=== PATIENT | male | born 1985 | race Two or more races ===

== ENCOUNTER → 2016-09-12 | Emergency (ER) | payer SELFPAY ==
[~2016-09-12] VITALS: Ht 172.7 cm; Wt 81.6 kg
[~2016-09-12] MED LIST: Erythromycin Opth Ointment 3.5gm BOTH EYES SCH; Erythromycin Opth Ointment 3.5gm ONE
[2016-09-12 23:00] VITALS: BP 122/71
[2016-09-13 01:05] VITALS: BP 126/72
[2016-09-13 02:24] LABS: MEAN CORPUSCULAR HGB CONC 33.3 G/DL (32.0-36.0); MEAN CORPUSCULAR VOLUME 87 FL (80-99); MEAN PLATELET VOLUME 14.1 FL (6.5-10.1); PLATELET COUNT 70 K/UL (150-450); RED BLOOD COUNT 5.58 M/UL (4.70-6.10); RED CELL DISTRIBUTION WIDTH 11.3 % (11.6-14.8); WHITE BLOOD COUNT 6.9 K/UL (4.8-10.8)
[2016-09-13 02:40] LABS: ACETAMINOPHEN < 10 ug/mL (10-30); ALANINE AMINOTRANSFERASE 82 U/L (3-41); ALBUMIN/GLOBULIN RATIO 1.4 (1.0-2.7); ALCOHOL < 10 mg/dL; ANION GAP 19 (5-15); ASPARTATE AMINO TRANSFERASE 54 U/L (5-40); CALCIUM 9.4 mg/dL (8.6-10.2); CARBON DIOXIDE 26 mEQ/L (20-30); CHLORIDE 93 mEQ/L (98-107); CREATININE 0.9 mg/dL (0.7-1.2); GLOMERULAR FILTRATION RATE > 60 mL/min (>60); HEMOLYSIS 2; POTASSIUM 3.9 mEQ/L (3.4-4.9); SODIUM 138 mEQ/L (135-145)
[2016-09-13 03:20] VITALS: BP 118/71
--- NOTE | 2016-09-13 04:41 | Emergency Room Report ---
History of Present Illness General Chief Complaint: General Complaint Source: EMS Present Illness HPI 31YOM with known "psych problems" BIBEMS after roomates stated he had "locked himself in his room for days, " ?not taking meds. Patient not providing additional HPI, not speaking currently. Never been here before. No other info available. No family or friends bedside. Allergies: Coded Allergies: No Known Allergies (Unverified , 09/12/16) Patient History Past Medical History: unable to obtain, psych hx Past Surgical History: unable to obtain Pertinent Family History: unable to obtain Nursing Documentation-PMH History Of Psychiatric Problem: Yes Review of Systems All Other Systems: limited - patient not providing HPI Physical Exam Vital Signs Date Time Temp Pulse Resp B/P Pulse Ox O2 Delivery O2 Flow Rate FiO2 09/12/16 22:47 97.7 98 14 127/78 100 Room Air Sp02 EP Interpretation: reviewed, normal General Appearance: normal inspection, well appearing, no apparent distress, alert, GCS 15, non-toxic, other - disheveled, dirty Head: normocephalic, atraumatic Eyes: bilateral eye EOMI, bilateral eye PERRL ENT: normal ENT inspection, hearing grossly normal, normal voice Neck: normal inspection, full range of motion, supple, no bony tend Respiratory: normal inspection, lungs clear, normal breath sounds, no respiratory distress, no retraction, no wheezing Cardiovascular #1: regular rate, rhythm, no edema Gastrointestinal: normal inspection, normal bowel sounds, non tender, soft, no guarding, no hernia Genitourinary: no CVA tenderness Musculoskeletal: normal inspection, back normal, normal range of motion, Jonny' s Sign negative Neurologic: normal inspection, alert, responsive, home care provider III-XII nml as tested, speech normal Psychiatric: normal inspection, judgement/insight normal, mood/affect normal Skin: normal inspection, other - there is a diffuse honey crusted rash on patient's face, prominent in eyelids Medical Decision Making Diagnostic Impression: Primary Impression: Abnormal behavior Additional Impressions: Hypoglycemia Rash ER Course Patient with acute behavioral change Psych history Not speaking Labs: H&h stable. No Leuks. Mild elevation in LFTs, bili but no abd pain on serial exam Honey-crusted secretions soaking eyelids, all over face. ?Impetigo Eye drops given Hypoglycemia - given food, juice Medically cleared Endorsed to Dr Rivera at 630am to followup PET Texted Dr Jean requesting Psych eval Last Vital Signs Date Time Temp Pulse Resp B/P Pulse Ox O2 Delivery O2 Flow Rate FiO2 09/12/16 22:47 97.7 98 14 127/78 100 Room Air Status: improved Disposition: XFER TO PSYCH HOSP/UNIT ANAMARIA MULLEN M.D. Sep 13, 2016 04:41
[2016-09-13 05:08] LABS: BILIRUBIN,DIRECT 0.4 mg/dL (0.1-0.3)
[2016-09-13 07:08] VITALS: BP 110/60
[2016-09-13 09:03] VITALS: BP 120/70
[2016-09-13 12:34] VITALS: BP 120/80
== END ==
LOC: EDBD 22:42 → EMR 23:40
DX: F68.8 Other specified disorders of adult personality and behavior (principal); E16.2 Hypoglycemia, unspecified; R21 Rash and other nonspecific skin eruption
CPT/HCPCS: 36415; 80053; 80300; 80329; 82248; 85025; 99285